=== PATIENT | male | born 1965 | race Caucasian/White ===

== ENCOUNTER 2019-09-29 05:09 | Emergency (ER) | payer SELFPAY ==
[2019-09-29] MEDS ORDERED: MORPHINE 4 MG/ML SYR ONE (05:33)
[2019-09-29] MEDS ORDERED: NA CHLORIDE 0.9% 1,000 ML ONE (05:33)
[2019-09-29] MEDS ORDERED: ONDANSETRON 4 MG/2 ML VIAL ONE (05:33)
[2019-09-29 05:49] LABS: Absolute Lymphocytes (CBC) 1.9 K/uL (0.7-4.9); Basophils % 0.6 % (0-1.3); Hematocrit 46.9 % (39.6-49.0); Lymphocytes % 18.7 % (15.3-44.8); MPV 10.1 fL (7.6-11.3); RBC Red Blood Cell Count 5.05 M/uL (4.33-5.43)
[2019-09-29 06:01] LABS: Albumin 4.1 g/dL (3.4-5.0); Bilirubin Direct 0.2 mg/dL (0-0.2); Bilirubin Total 0.5 mg/dL (0.2-1.0); Potassium 3.9 mmol/L (3.5-5.1); Protein, Total 7.2 g/dL (6.4-8.2)
--- NOTE | 2019-09-29 08:03 | EDPHYS ---
Physician Documentation [facility] Name: Devon Ramsey Age: 54 yrs Sex: Male : 1965 Arrival Date: 09/29/2019 Time: 05:12 Bed 5 Private MD: ED Physician Kiran Bolden HPI: 09/29 05:38 This 54 yrs old Male presents to ER via Ambulatory with complaints of pkl Abdominal Pain. 05:38 The patient presents with abdominal pain in the upper abdomen. Onset: The pkl symptoms/episode began/occurred just prior to arrival, 8 hour(s) ago. The symptoms do not radiate. Associated signs and symptoms: none. The patient has not experienced similar symptoms in the past. Historical: - Allergies: 05:25 No Known Allergies; rr5 - Home Meds: 05:25 None [Active]; rr5 - PMHx: 05:25 None; rr5 - PSHx: 05:25 None; rr5 - Immunization history:: Adult Immunizations not up to date. - Social history:: Smoking status: Patient uses tobacco products, smokes one-half pack cigarettes per day, Patient/guardian denies using alcohol, street drugs. - Ebola Screening: : Patient negative for fever greater than or equal to 101.5 degrees Fahrenheit, and additional compatible Ebola Virus Disease symptoms Patient denies exposure to infectious person Patient denies travel to an Ebola-affected area in the 21 days before illness onset. ROS: 05:38 Eyes: Negative for injury, pain, redness, and discharge, ENT: Negative for injury, pkl pain, and discharge, Neck: Negative for injury, pain, and swelling, Cardiovascular: Negative for chest pain, palpitations, and edema, Respiratory: Negative for shortness of breath, cough, wheezing, and pleuritic chest pain. 05:38 Abdomen/GI: Positive for abdominal pain, of the right upper quadrant and left upper quadrant. 05:38 Back: Negative for acute changes. 05:38 : Negative for urinary symptoms. 05:38 MS/extremity: Negative for acute changes. 05:38 Skin: Negative for rash. 05:38 Neuro: Negative for altered mental status, loss of consciousness. Exam: 05:38 Head/Face: Normocephalic, atraumatic. Eyes: Pupils equal round and reactive to light, pkl extra-ocular motions intact. Lids and lashes normal. Conjunctiva and sclera are non-icteric and not injected. Cornea within normal limits. Periorbital areas with no swelling, redness, or edema. ENT: Nares patent. No nasal discharge, no septal abnormalities noted. Tympanic membranes are normal and external auditory canals are clear. Oropharynx with no redness, swelling, or masses, exudates, or evidence of obstruction, uvula midline. Mucous membranes moist. Neck: Trachea midline, no thyromegaly or masses palpated, and no cervical lymphadenopathy. Supple, full range of motion without nuchal rigidity, or vertebral point tenderness. No Meningismus. Chest/axilla: Normal chest wall appearance and motion. Nontender with no deformity. No lesions are appreciated. Cardiovascular: Regular rate and rhythm with a normal S1 and S2. No gallops, murmurs, or rubs. Normal PMI, no JVD. No pulse deficits. Respiratory: Lungs have equal breath sounds bilaterally, clear to auscultation and percussion. No rales, rhonchi or wheezes noted. No increased work of breathing, no retractions or nasal flaring. 05:38 Abdomen/GI: Bowel sounds: high pitched, Palpation: soft, moderate abdominal tenderness, in the right upper quadrant and left upper quadrant. 05:38 Back: Exam negative for acute changes. 05:38 : Exam negative for acute changes. 05:38 Musculoskeletal/extremity: Exam is negative for acute changes. 05:38 Skin: Exam negative for rash. 05:38 Neuro: Orientation: is normal, Mentation: is normal, Cranial nerves: grossly normal, Motor: is normal. Vital Signs: 05:20 BP 151 / 76; Pulse 64; Resp 23; Temp 98.4; Pulse Ox 100% ; Weight 131.54 kg; Height 6 rr5 ft. 2 in. (187.96 cm); Pain 10/10; 06:40 BP 148 / 72; Pulse 72; Resp 20; Pulse Ox 99% ; Pain 9/10; rr5 07:00 BP 148 / 70; Pulse 66; Resp 18; Pulse Ox 95% ; sv 08:00 BP 141 / 72; Pulse 70; Resp 18; Pulse Ox 99% ; sv 05:20 Body Mass Index 37.23 (131.54 kg, 187.96 cm) rr5 MDM: 05:35 Patient medically screened. pkl 07:59 Data reviewed: vital signs, nurses notes, lab test result(s), radiologic studies, CT pkl scan, ultrasound. ED course: Patient feeling better. Abdominal improved. 09/29 05:32 Order name: Basic Metabolic Panel; Complete Time: 06:02 09/29 05:32 Order name: CBC with Diff; Complete Time: 06:08 09/29 05:32 Order name: Creatinine for Radiology; Complete Time: 06:02 09/29 05:32 Order name: Hepatic Function; Complete Time: 06:02 09/29 05:32 Order name: Lipase; Complete Time: 06:02 09/29 05:42 Order name: CT Abd/Pelvis - IV Contrast Only pkl 09/29 05:32 Order name: IV Saline Lock; Complete Time: 05:32 09/29 05:32 Order name: Labs collected and sent; Complete Time: 05:32 09/29 06:39 Order name: US Abdomen Limited pkl Administered Medications: 05:30 Drug: NS 0.9% 1000 ml Route: IV; Rate: 1 bolus; Site: right antecubital; rr5 05:30 Drug: Zofran 4 mg Route: IVP; Site: right antecubital; rr5 07:13 Follow up: Response: Nausea is decreased bp 05:33 Drug: morphine 4 mg {Note: rass 0.} Route: IVP; Site: right antecubital; rr5 Disposition: 09/29/19 08:01 Discharged to Home. Impression: Cholelithiasis. - Condition is Stable. - Discharge Instructions: Cholelithiasis. - Prescriptions for Ultram 50 mg Oral Tablet - take 1 tablet by ORAL route every 8 hours As needed; 15 tablet. Cipro 500 mg Oral Tablet - take 1 tablet by ORAL route every 12 hours for 7 days; 14 tablet. - Medication Reconciliation Form, Thank You Letter, Antibiotic Education, Prescription Opioid Use form. - Follow up: Ramos Lucia MD; When: 2 - 3 days; Reason: Re-evaluation by your physician. - Problem is new. - Symptoms have improved. Signatures: Dispatcher [employer] Nisa Beverly, RN Kiran Pleitez MD MD pkl Le Felder RN RN Elbert Barnes RN RN rr5 Holger Huffman RN bp Corrections: (The following items were deleted from the chart) 08:23 08:01 09/29/2019 08:01 Discharged to Home. Impression: Cholelithiasis. Condition is sv Stable. Forms are Medication Reconciliation Form, Thank You Letter, Antibiotic Education, Prescription Opioid Use. Follow up: Dr. Ramos Lucia; When: 2 - 3 days; Reason: Re-evaluation by your physician. Problem is new. Symptoms have improved. pkl
--- NOTE | 2019-09-29 08:03 | ER ---
Nurse's Notes [facility] Name: Devon Ramsey Age: 54 yrs Sex: Male : 1965 Arrival Date: 09/29/2019 Time: 05:12 Bed 5 Private MD: Diagnosis: Cholelithiasis Presentation: 09/29 05:20 Presenting complaint: Patient states: having this abdominal pain started 8 hours ago. rr5 denies nausea/ vomiting/ diarrhea. pain score 10/10. 05:20 Transition of care: patient was not received from another setting of care. Onset of rr5 symptoms was September 28, 2019. Risk Assessment: Do you want to hurt yourself or someone else? Patient reports no desire to harm self or others. Initial Sepsis Screen: Does the patient meet any 2 criteria? No. Patient's initial sepsis screen is negative. Does the patient have a suspected source of infection? No. Patient's initial sepsis screen is negative. Care prior to arrival: None. 05:20 Method Of Arrival: Ambulatory rr5 05:20 Acuity: JOJO 3 rr5 Historical: - Allergies: 05:25 No Known Allergies; rr5 - Home Meds: 05:25 None [Active]; rr5 - PMHx: 05:25 None; rr5 - PSHx: 05:25 None; rr5 - Immunization history:: Adult Immunizations not up to date. - Social history:: Smoking status: Patient uses tobacco products, smokes one-half pack cigarettes per day, Patient/guardian denies using alcohol, street drugs. - Ebola Screening: : Patient negative for fever greater than or equal to 101.5 degrees Fahrenheit, and additional compatible Ebola Virus Disease symptoms Patient denies exposure to infectious person Patient denies travel to an Ebola-affected area in the 21 days before illness onset. Screenin:26 Abuse screen: Denies threats or abuse. Denies injuries from another. Nutritional rr5 screening: No deficits noted. Tuberculosis screening: No symptoms or risk factors identified. Fall Risk IV access (20 points). Total Winters Fall Scale indicates No Risk (0-24 pts). Assessment: 05:26 General: Appears uncomfortable, ill, Behavior is cooperative, appropriate for age. rr5 Pain: Complains of pain in right upper quadrant and left upper quadrant Pain does not radiate. Pain currently is 10 out of 10 on a pain scale. Quality of pain is described as aching, Pain began gradually, Is intermittent. Neuro: Level of Consciousness is awake, alert, obeys commands, Oriented to person, place, time, situation. Cardiovascular: Capillary refill < 3 seconds Patient's skin is warm and dry. Respiratory: Airway is patent Respiratory effort is even, unlabored, Respiratory pattern is regular, symmetrical. GI: Abdomen is round Bowel sounds present X 4 quads. Abdomen is tender to palpation in right upper quadrant and left upper quadrant Guarding noted in right upper quadrant and left upper quadrant Reports upper abdominal pain. : No signs and/or symptoms were reported regarding the genitourinary system. EENT: No signs and/or symptoms were reported regarding the EENT system. Derm: Skin is intact, is healthy with good turgor, Skin temperature is warm. Musculoskeletal: Capillary refill < 3 seconds. 06:45 Reassessment: Patient appears in no apparent distress at this time. Patient is alert, rr5 oriented x 3, equal unlabored respirations, skin warm/dry/pink. ultrasound procedure performing at bedside. 07:00 Reassessment: RECD REPORT FROM KENISHA SULTANA. 54YO WM P/W ABDOMINAL PAIN, RESULTS PENDING. bp 07:51 Reassessment: PT RETURNED FROM CT. ALL CURRENT ORDERS COMPLETED, RESULTS PENDING. bp 08:22 Reassessment: Patient appears in no apparent distress at this time. Patient and/or sv family updated on plan of care and expected duration. Pain level reassessed. Patient is alert, oriented x 3, equal unlabored respirations, skin warm/dry/pink. Vital Signs: 05:20 BP 151 / 76; Pulse 64; Resp 23; Temp 98.4; Pulse Ox 100% ; Weight 131.54 kg; Height 6 rr5 ft. 2 in. (187.96 cm); Pain 10/10; 06:40 BP 148 / 72; Pulse 72; Resp 20; Pulse Ox 99% ; Pain 9/10; rr5 07:00 BP 148 / 70; Pulse 66; Resp 18; Pulse Ox 95% ; sv 08:00 BP 141 / 72; Pulse 70; Resp 18; Pulse Ox 99% ; sv 05:20 Body Mass Index 37.23 (131.54 kg, 187.96 cm) rr5 ED Course: 05:12 Patient arrived in ED. es 05:23 Kenisha Ledbetter, KAYY is Primary Nurse. rr5 05:25 Triage completed. rr5 05:26 Patient has correct armband on for positive identification. Bed in low position. Call rr5 light in reach. Side rails up X2. Pulse ox on. NIBP on. 05:30 Arm band placed on. rr5 05:30 Initial lab(s) drawn, by [facility], sent to lab. Inserted saline lock: 20 gauge in right bb antecubital area, using aseptic technique. Blood collected. 05:35 Kiran Bolden MD is Attending Physician. pkl 06:55 US Abdomen Limited In Process Unspecified. EDMS 07:10 Primary Nurse role handed off by Kenisha Ledbetter RN sv 07:10 Nisa Mac RN is Primary Nurse. sv 07:33 CT Abd/Pelvis - IV Contrast Only In Process Unspecified. EDMS 07:36 [address] from [address]. sv 08:00 Ramos Lucia MD is Referral Physician. pkl 08:22 No provider procedures requiring assistance completed. IV discontinued, intact, sv bleeding controlled, No redness/swelling at site. Pressure dressing applied. Administered Medications: 05:30 Drug: NS 0.9% 1000 ml Route: IV; Rate: 1 bolus; Site: right antecubital; rr5 05:30 Drug: Zofran 4 mg Route: IVP; Site: right antecubital; rr5 07:13 Follow up: Response: Nausea is decreased bp 05:33 Drug: morphine 4 mg {Note: rass 0.} Route: IVP; Site: right antecubital; rr5 Outcome: 08:01 Discharge ordered by . pkl 08:22 Discharged to home ambulatory. sv 08:22 Condition: stable 08:22 Discharge instructions given to patient, Instructed on discharge instructions, follow up and referral plans. no drinking with medication, no driving heavy equipment, medication usage, low fat diet Demonstrated understanding of instructions, follow-up care, medications, low fat diet Prescriptions given X 2. 08:23 Patient left the ED. sv Signatures: Dispatcher [employer] EDNE Nisa Mac, Kiran Pleitez RN, MD MD pkl Flor Bills Brenda, RN RN bb Peltier, Brian, RN RN bp Kenisha Ledbetter, RN RN rr5
--- NOTE | 2019-09-29 08:20 | RAD REPORT ---
EXAM DESCRIPTION: CT - Abdomen Pelvis W Contrast - 09/29/2019 7:33 am CLINICAL HISTORY: ABD PAIN COMPARISON: None. TECHNIQUE: Biphasic, helical CT imaging of the abdomen and pelvis was performed following 100 ml non -ionic IV contrast. No oral contrast. All CT scans are performed using dose optimization technique as appropriate and may include automated exposure control or mA/KV adjustment according to patient size. FINDINGS: No suspicious findings in the lung bases. Lung base granulomas are seen. No pericardial ef fusion. The liver, spleen, and pancreas show no suspicious findings. There is an 18 millimeter gallstone in t he neck of the gallbladder. Additional gallstones could be occult. No wall thickening, wall edema or dilation of the gallbladder. No biliary tree dilatation. Symmetric renal function is seen with no hydronephrosis or suspicious renal mass. No pyelonephritis o r acute parenchymal process. No bladder abnormalities. No adrenal abnormalities. No dilated bowel loops or bowel wall thickening. Appendix is normal. No free air, free fluid or infla mmatory stranding. No mass or bulky lymphadenopathy. Fat extends into the origin of each inguinal ca nal. Patient has a very minimal fat only umbilical hernia. No suspicious bony findings. IMPRESSION: Contrast enhanced CT abdomen and pelvis showing no acute finding. Patient does have a gallstone but no evidence otherwise for active gallbladder process. No biliary tr ee abnormality. Correlation is needed to determine if the patient's pain symptoms may be related to t he gallbladder.
--- NOTE | 2019-09-29 08:21 | RAD REPORT ---
EXAM DESCRIPTION: US - Abdomen Exam Limited - 09/29/2019 6:54 am CLINICAL HISTORY: ABD PAIN COMPARISON: Abdomen Pelvis W Contrast dated 09/29/2019 FINDINGS: A single gallstone is identified approximately 2 cm in size fixed at the neck of the gallb ladder. Gallbladder is not dilated. Minimal sludge is present. There is no wall thickening or pericho lecystic fluid. No common duct stone or biliary tree dilatation identified. IMPRESSION: Approximately 2 centimeter size gallstone fixed at the neck of the gallbladder. No other significant gallbladder finding. No duct stone or biliary tree dilatation.
[2019-09-29 08:30] VITALS: TEMP 98.4
[2019-09-29 08:34] VITALS: BP 141/72; O2SAT 99
== END 2019-09-29 08:23 | disposition home or self-care (01) ==
LOC: ER 05:09
DX: K80.20 Calculus of gallbladder without cholecystitis without obstruction (principal); F17.210 Nicotine dependence, cigarettes, uncomplicated
CPT/HCPCS: 36415; 74177; 76705; 80048; 80076; 83690; 85025; 96374; 96375; 99284; J2405; J7030; Q9967